=== PATIENT | female | born 1990 | race Native Hawaiian/Other Pacific Islander ===

== ENCOUNTER 2016-07-19 17:49 | Emergency (ER) | payer OTHER ==
[~2016-07-19] VITALS: Ht 162.6 cm; Wt 54.4 kg
[2016-07-19 18:32] VITALS: BP 124/80; TEMP 98.2
== END 2016-07-19 18:32 | disposition home or self-care (01) ==
LOC: ED 17:49
DX: H60.593 Other noninfective acute otitis externa, bilateral (principal); H92.03 Otalgia, bilateral
CPT/HCPCS: 99282

== ENCOUNTER 2017-06-24 16:20 | Emergency (ER) | payer OTHER ==
[~2017-06-24] VITALS: Ht 162.6 cm; Wt 54.0 kg
[2017-06-24 19:05] VITALS: BP 105/62; TEMP 98
== END 2017-06-24 19:13 | disposition home or self-care (01) ==
LOC: ED 16:20
DX: S50.11XA Contusion of right forearm, initial encounter (principal); S60.221A Contusion of right hand, initial encounter; S70.02XA Contusion of left hip, initial encounter; S70.12XA Contusion of left thigh, initial encounter; S40.011A Contusion of right shoulder, initial encounter; S20.222A Contusion of left back wall of thorax, initial encounter; S20.221A Contusion of right back wall of thorax, initial encounter; W17.89XA Other fall from one level to another, initial encounter; Y92.830 Public park as the place of occurrence of the external cause
CPT/HCPCS: 96372; 99283; J1885

== ENCOUNTER 2019-07-02 09:22 | Outpatient (CLI) | payer OTHER | END 2019-07-02 20:21 | disposition home or self-care (01) | LOC: RAD 09:22 | DX: S59.901A Unspecified injury of right elbow, initial encounter (principal) ==

== ENCOUNTER 2020-06-29 09:38 | Outpatient (CLI) | payer BC | END 2020-06-29 21:31 | disposition home or self-care (01) | LOC: RAD 09:38 | PROVIDERS: ATTEND Family Medicine | DX: M54.17 Radiculopathy, lumbosacral region (principal) ==

== ENCOUNTER 2021-11-22 15:56 | Outpatient (CLI) | payer OTHER | END 2021-11-22 20:16 | disposition home or self-care (01) | LOC: RAD 15:56 | PROVIDERS: ATTEND Nurse Practitioner Primary Care | DX: M54.59 Other low back pain (principal) ==

== ENCOUNTER 2022-02-04 10:06 | Emergency (ER) | payer OTHER ==
[~2022-02-04] VITALS: Ht 162.6 cm; Wt 57.2 kg
[2022-02-04 11:35] VITALS: BP 105/73; TEMP 98.3
== END 2022-02-04 11:35 | disposition home or self-care (01) ==
LOC: ED 10:06
DX: K02.9 Dental caries, unspecified (principal); K04.7 Periapical abscess without sinus
CPT/HCPCS: 96372; 99283; J1885

== ENCOUNTER 2022-04-03 08:00 | Emergency (ER) | payer OTHER ==
[~2022-04-03] VITALS: Ht 165.1 cm; Wt 57.2 kg
[2022-04-03 08:00] VITALS: TEMP 98.8
[2022-04-03 08:55] LABS: PLATELET COUNT 164 K/uL (152-353)
[2022-04-03 11:15] VITALS: BP 101/55
== END 2022-04-03 11:23 | disposition home or self-care (01) ==
LOC: ED 08:00
PROVIDERS: Emergency Medicine Emergency Medical Services
DX: J10.1 Influenza due to other identified influenza virus with other respiratory manifestations (principal); J45.909 Unspecified asthma, uncomplicated; Z20.822 Contact with and (suspected) exposure to COVID-19; F17.210 Nicotine dependence, cigarettes, uncomplicated
CPT/HCPCS: 80307; 81025; 85027; 87502; 87635; 94664; 96360; 96365; 96375; 99284; J1956; J2930; U0003